=== PATIENT | female | born 2000 | race Caucasian/White ===

== ENCOUNTER 2024-06-12 10:27 | Outpatient (CLI) | payer BC | END 2024-06-12 10:28 | disposition home or self-care (01) | LOC: ULT 10:27 | PROVIDERS: ATTEND Nurse Practitioner Family | DX: N92.0 Excessive and frequent menstruation with regular cycle (principal); Z87.42 Personal history of other diseases of the female genital tract; N83.201 Unspecified ovarian cyst, right side | CPT/HCPCS: 76856 ==